=== PATIENT | female | born 1950 | race Two or more races ===

== ENCOUNTER 2024-10-17 12:24 | Emergency (ER) | payer OTHER ==
[~2024-10-17] VITALS: Ht 162.6 cm; Wt 68.9 kg
== END 2024-10-17 16:40 | disposition home or self-care (01) ==
LOC: ER 12:27
DX: S00.83XA Contusion of other part of head, initial encounter (principal); W18.39XA Other fall on same level, initial encounter; Y93.89 Activity, other specified; Y92.89 Other specified places as the place of occurrence of the external cause; Y99.9 Unspecified external cause status